=== PATIENT | female | born 1990 ===

== ENCOUNTER 2022-08-06 10:42 | Outpatient (REF) | payer MEDICARE, MEDICAID, SELFPAY ==
--- NOTE | ~2022-08-06 | XR_ITS ---
EXAMINATION: XR THORACOLUMBAR SPINE CLINICAL INFORMATION: Mid back pain COMPARISON: None TECHNIQUE: 3 views. FINDINGS: There is normal thoracic kyphosis. The vertebral heights, alignment and disc heights are normal. No visible acute fracture, dislocation or subluxation seen. The paravertebral soft tissues are normal. XR/XR thoracic spine 2V IMPRESSION: Unremarkable dorsal spine exam.
[2022-08-06 13:53] LABS: MANUAL DIFF FLAG NO
[2022-08-06 14:03] LABS: Basophils Percent Auto 0.8 % (0-2); Eosinophils Absolute Auto 0.1 X10*3/uL (0.0-0.4); Eosinophils Percent Auto 1.6 % (0-4); Hematocrit 37.9 % (37.0-47.0); Hemoglobin 12.2 g/dl (12.0-16.0); Imm Gran Abs Auto 0.02 X10*3/uL (0.00-0.03); Imm Gran Pct Auto 0.4 % (0.0-0.4); Lymphocytes Absolute Auto 1.5 X10*3/uL (1.2-4.9); Lymphocytes Percent Auto 30.1 % (20-40); Mean Corpuscular HGB Conc 32.2 g/dl (31.0-35.0); Mean Corpuscular Volume 80.8 fL (80.0-98.0); Mean Platelet Volume 12.2 fL (9.4-12.3); Monocytes Absolute Auto 0.4 X10*3/uL (0.1-1.2); Monocytes Percent Auto 8.8 % (2-11); Neutrophils Absolute Auto 2.9 x10*3/uL (2.0-8.3); Neutrophils Percent Auto 58.3 % (45-73); Platelet Count 237 X10*3/uL (160-400); Red Blood Count 4.69 X10*6/uL (4.20-5.50); Red Cell Distribution Width 14.5 % (11.0-16.0)
[2022-08-06 14:17] LABS: Estimated Glomerular Filt Rate > 60
[2022-08-06 14:36] LABS: Creatinine Urine 31.53 mg/dL; Total Protein Urine Random < 7 mg/dL (<12)
[2022-08-06 14:43] LABS: Erythrocyte Sedimentation Rate 16 MM/HR (0-20)
[2022-08-07 09:41] LABS: Complement C3 155 mg/dL (83-193)
[2022-08-11 07:33] LABS: Anti DNA DS Antibody 1 IU/mL; SM/Ribonucleoprotein Ab <1.0 NEG AI (<1.0 NEG); Smith Protein <1.0 NEG AI (<1.0 NEG)
== END 2022-08-06 10:43 | disposition home or self-care (01) ==
LOC: HO.10HDL 10:42
PROVIDERS: Visit Provider Internal Medicine Rheumatology
DX: M54.9 Dorsalgia, unspecified (principal); R76.8 Other specified abnormal immunological findings in serum; M54.50 Low back pain, unspecified; R93.7 Abnormal findings on diagnostic imaging of other parts of musculoskeletal system
CPT/HCPCS: 36415; 72070; 82565; 84156; 85025; 85652; 86160; 86225; 86235; 99202

== ENCOUNTER → 2022-08-24 14:51 | Outpatient (BNVA) | payer MEDICARE, MEDICAID, SELFPAY | PROVIDERS: PCP Internal Medicine; Visit Provider Nurse Practitioner Family | DX: G43.109 Migraine with aura, not intractable, without status migrainosus (principal); R55 Syncope and collapse; R20.2 Paresthesia of skin; M54.2 Cervicalgia | CPT/HCPCS: 99202 ==

== ENCOUNTER 2022-09-26 12:35 | Outpatient (REF) | payer MEDICARE, MEDICAID, SELFPAY ==
--- NOTE | 2022-09-26 12:37 | EEG_ITS ---
This is a 16-channel EEG with an EKG lead. The patient is reported awake during the tracing. Background EEG rhythm at times is low amplitude fast and at times about 8 hertz 5-20 microvolt posteriorly and lower amplitude fast anteriorly. The patient transitioned into drowsiness now and then. Photic stimulation did not produce any significant driving. Hyperventilation resulted in generalized slowing without any significant abnormality. There were at least couple of brief 1 seconds bursts of generalize delta range discharges out of wakefulness and drowsiness state. Cardiac lead did not reveal any significant abnormality. IMPRESSION: Mildly abnormal EEG suggestive of paroxysmal disorder of generalized nature. My suggestion is to obtain an ambulatory EEG for a day and 2 to get better picture of her EEG. MD LULÚ Duarte/RYLEE / [id number]
== END 2022-09-26 12:36 | disposition home or self-care (01) ==
LOC: HO.NEURO 12:35
PROVIDERS: Visit Provider Nurse Practitioner Family
DX: G43.109 Migraine with aura, not intractable, without status migrainosus (principal); R55 Syncope and collapse
CPT/HCPCS: 95816

== ENCOUNTER 2022-10-26 16:46 | Outpatient (REF) | payer MEDICARE, MEDICAID, SELFPAY | END 2022-10-26 16:47 | disposition home or self-care (01) | LOC: HO.HOSX 16:46 | PROVIDERS: Visit Provider Physician Assistant | DX: Z13.89 Encounter for screening for other disorder (principal) ==

== ENCOUNTER 2022-11-15 13:48 | Outpatient (REF) | payer MEDICARE, MEDICAID, SELFPAY ==
--- NOTE | 2022-11-15 09:30 | EMG_ITS ---
Bilateral median and ulnar motor and sensory studies were performed. Bilateral radial sensory studies were performed and paraspinal muscles were tested. IMPRESSION: Mild right ulnar sensory neuropathy. Otherwise, no significant abnormality was noted on this study. MD LULÚ Duarte/RYLEE / [id number]
== END 2022-11-15 13:49 | disposition home or self-care (01) ==
LOC: HO.NEURO 13:48
PROVIDERS: Visit Provider Nurse Practitioner Family
DX: R20.2 Paresthesia of skin (principal)
CPT/HCPCS: 95886; 95911

== ENCOUNTER 2022-12-28 07:59 | Outpatient (REF) | payer MEDICARE, MEDICAID, SELFPAY ==
--- NOTE | ~2022-12-28 | XR_ITS ---
EXAMINATION: XR FOOT, LEFT CLINICAL INFORMATION: Pain. COMPARISON: None available. TECHNIQUE: AP, lateral, and oblique views of the left foot. FINDINGS: Diffuse nonspecific soft tissue swelling. No acute fractures or subluxation. No significant degenerative changes. No erosions or abnormal soft tissue calcifications. XR/XR foot LT min 3V IMPRESSION: 1. Nonspecific diffuse soft tissue swelling. 2. No acute fractures or subluxation.
== END 2022-12-28 08:00 | disposition home or self-care (01) ==
LOC: HO.HOSX 07:59
PROVIDERS: Visit Provider Physician Assistant
DX: M72.2 Plantar fascial fibromatosis (principal)
CPT/HCPCS: 73630; 99202

== ENCOUNTER 2023-07-19 14:20 | Outpatient (AMB) | payer MEDICARE, MEDICAID, SELFPAY ==
--- NOTE | 2023-07-19 14:25 | MHC.OFFVIS ---
Intake Vital Signs 07/19/23 14:29 Weight 220 lb 6 oz BP 120/68 Blood Pressure Location Lt brachial Position Sitting Pulse 78 Pulse Source Pulse Oximeter Pulse Oximetry (%) 98 Oxygen Delivery Method Room Air Intake Visit Reasons: Follow up for Migraines/Lvm Intake Note: Pt presents today for fup migraines, seems to coincide c mentrual cycles can last as long as 7 days and as short as 2 , lately shes been very fatigued as well. Pt states now her feet are also falling asleep Allergies Penicillins Allergy (Intermediate, Verified 07/19/23 14:32) Hives oxcarbazepine Allergy (Unknown, Verified 07/19/23 14:32) Unknown propylene glycol Allergy (Unknown, Verified 07/19/23 14:32) Unknown cats, dust , pollen Allergy (Unknown, Uncoded 08/06/22 09:45) Unknown Medication List - Last Reconciled 07/19/23 by April Tracy, JCARLOS albuterol sulfate 90 mcg/actuation (ProAir HFA) 2 puffs inhalation Q6H PRN ascorbic acid (vitamin C) 500 mg PO DAILY baclofen 10 mg PO BEDTIME 30 days magnesium oxide 400 mg PO BEDTIME 30 days multivitamin 1 tab PO DAILY riboflavin (vitamin B2) 400 mg PO DAILY 30 days sulindac 200 mg PO BID sumatriptan succinate 100 mg PO Q2H PRN 30 days HPI HPI Comments History of Present Illness Details 33-yr-old female presents for f/u visit. Pt denies any significant interval medical changes. Pt reports she continues to have frequent headache- typically around her ovulation and her menses, but alos more TTH headcahes as well. She is having approx 3 weeks of headache per month. She did try Mag and B2 which were ineffective. She has not tried Sumatriptan yet- keeps forgetting to try. 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 Denies current risk for . She notes increased tiredness, unrefreshing sleep, excessive daytime sleepiness (dozes off when inactive, at [employer]), now snoring, frequent nocturnal arousals. Her cognition is worse. Finds herself forgetful. She may strutter if anxious. Denies any syncopal episodes. The 72 hr EEG was normal. Baseline EEG: Mildly abnormal EEG suggestive of paroxysmal disorder of generalized nature. PFSH Medical History Obesity Asthma ADD (attention deficit disorder) Iron deficiency anemia Gestational diabetes Bipolar 1 disorder Surgical History History of section Family History Mother Hypercholesteremia Father Diabetes Hypothyroidism Arthritis CVA (cerebral vascular accident) Maternal Grandmother Myocardial infarct Maternal Grandfather Myocardial infarct Paternal Grandmother Prostate cancer Paternal Grandfather No problems noted. Social History Household Members: Children Alcohol intake: current Alcohol intake frequency: does not drink Patient Tobacco Use Status: Never used Tobacco Current occupational status: unemployed Review of Systems Const All systems reviewed & are unremarkable except as noted in HPI and below Physical Exam Vital Signs: Last Vital Signs Pulse 78 07/19/23 14:29 BP 120/68 07/19/23 14:29 Pulse Ox 98 07/19/23 14:29 Oxygen Delivery Method Room Air 07/19/23 14:29 Const General: cooperative and no acute distress Orientation/consciousness: patient oriented x3 HEENT Head: Yes normocephalic Resp Effort & Inspection: normal respiratory effort and able to speak in complete sentences Neuro General: patient oriented x3, gait normal and CN's II-XI intact bilaterally Cognition (Neuro): normal cognition Motor exam (neuro): 5/5 motor strength present throughout Psych Appearance: grossly normal Mental Status: mental status grossly normal Speech and movement: Normal speech and movement present Affect: normal affect Attitude: cooperative Thought process: Normal thought process present Thought content: Normal thought content present Insight: Good insight present (Psych) Judgement: Good judgement present (Psych) Assessment & Plan Assessment & Plan (1) Migraine with aura: Code(s): G43.109 - Migraine with aura, not intractable, without status migrainosus (2) Snoring: Code(s): R06.83 - Snoring (3) Excessive daytime sleepiness: Comment: ESS 15 Code(s): G47.19 - Other hypersomnia (4) Sleep difficulties: Code(s): G47.9 - Sleep disorder, unspecified Plan Pt advsied to undergo HST to asses for sleep apnea. Monitor cognition, stuttering- ? effect of poor sleep quality, ? untreated ADD, ? headache For h/o syncopal episodes: Initial EEG- mildly abnormal, f/u 72 hr EEG- normal Will monitor ? For overall headache management: Discussed importance of good self-care, including but not limited to maintaining a healthy diet, adequate fluid intake, adequate sleep, and engaging in regular physical activity. Track headaches ? For acute headache treatment: Again trial Sumatriptan prn, may adjunct w/ OTC Naproxen or Ibuprofen- may statrt 1-2 days priro to onset of menses Previous acute migraine medication trials: Excedrin, Ibuprofen Acute migraine medication contraindications: None at this time. ? For headache prevention medication: Pt would like to hold trying new option at this time. Hold Riboflavin 400mg qam Magnesium 400mg qhs- ineffective. Hold Baclofen 10mg qhs. Previous migraine prevention medication trials: None Migraine prevention medication contraindications: BBs as pt has asthma dx. f/u in 4 months or sooner prn Orders: Orders RT home sleep study Today G47.19 - Other hypersomnia, G47.9 - Sleep disorder, unspecified, R06.83 - Snoring Medications: Refilled sumatriptan succinate max 2 tabs per day or 4 tabs/week (may take with Tylenol) 100 mg PO Q2H 30 days PRN 12 tabs 6RF migraine headache Coding Level of Care Code Est Pt Level 4 (85677) Diagnoses Migraine with aura G43.109 Snoring R06.83 Excessive daytime sleepiness G47.19 Sleep difficulties G47.9
[2023-07-19 14:29] VITALS: BP 120/68; PULSE 78; O2SAT 98
== END 2023-07-19 15:14 | disposition home or self-care (01) ==
PROVIDERS: PCP Student in an Organized Health Care Education/Training Program; Visit Provider Nurse Practitioner Family
DX: G43.109 Migraine with aura, not intractable, without status migrainosus (principal); R06.83 Snoring; G47.19 Other hypersomnia; G47.9 Sleep disorder, unspecified
CPT/HCPCS: 99214

== ENCOUNTER → 2023-07-19 14:20 | Outpatient (BNVA) | payer MEDICARE, MEDICAID, SELFPAY | PROVIDERS: PCP Student in an Organized Health Care Education/Training Program; Visit Provider Nurse Practitioner Family | DX: G43.109 Migraine with aura, not intractable, without status migrainosus (principal); R06.83 Snoring; G47.19 Other hypersomnia; G47.9 Sleep disorder, unspecified | CPT/HCPCS: 99212 ==

== ENCOUNTER 2023-10-04 10:26 | Outpatient (AMB) | payer MEDICARE, MEDICAID, SELFPAY ==
--- NOTE | 2023-10-04 10:46 | MHC.OFFVIS ---
Intake Vital Signs 10/04/23 10:47 Height 5 ft 4 in Weight 228 lb 13.437 oz BMI 39.3 BP 108/60 Blood Pressure Location Rt brachial Position Sitting Pulse 74 Pulse Source Pulse Oximeter Temp 97.5 F Temp Source Skin Pulse Oximetry (%) 98 Oxygen Delivery Method Room Air Intake Visit Reasons: f/u CARMELINA Intake Note: Patient last seen 08/06/[address] Moeller, presents today for follow up and test results. 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 Clover Hernandez yoF returns for follow-up of her initial evaluation of multiple areas of pain and a positive CARMELINA. She denies new symptoms since last visit in 08/2022. She continues to follow with Neuro for headaches and Ortho for Plantar Fasciitis. She endorses diffused pain to hand, ankle knees and lower back. She denies uvetiits, rash, diarrhea, stool mucous or blood. She does not have CTD and inflammatory symptoms. Prior Visit: The patient presents for evaluation of multiple areas of pain and a positive CARMELINA. After her of her 1st child when she was 19 she noted the onset of some lower back pain. This typically is sharp and comes and goes. It is often made worse when she is more physically active. She has had 2 subsequent childbirths and after the last 3 years ago she devleoped some upper back pain. This seems to radiate around to the front of the chest. It is worse with taking a deep breath or with bending or stooping. She does not recall any injury to the area. She also gets more diffuse pains involving the hands, wrists, hips, knees and feet. She thinks the hands are intermittently painful, swollen and numb. She was put on 7.5 mg daily meloxicam about 6 months ago but it has not really improved any of her symptoms. An CARMELINA was done and was positive a 1:160 titer. She gets some redness over her cheeks at times. She was told in the past she had ADHD and bipolar disorder. A subsequent therapist told her that she only has ADHD and not bipolar. She is not on any medicine for these mental health issues currently. She does take occasional albuterol inhaler for wheezing. She she lives with her 3 children at home and they are said to have some degree of autism. [facility] Medical History (Updated 10/07/23 @ 15:00 by NATALI Cramer) Chronic pain of multiple joints Bilateral hand pain Obesity Asthma ADD (attention deficit disorder) Iron deficiency anemia Gestational diabetes Bipolar 1 disorder Surgical History History of section Family History Mother Hypercholesteremia Father Diabetes Hypothyroidism Arthritis CVA (cerebral vascular accident) Maternal Grandmother Myocardial infarct Maternal Grandfather Myocardial infarct Paternal Grandmother Prostate cancer Paternal Grandfather No problems noted. Social History Household Members: Children Alcohol intake: current Alcohol intake frequency: does not drink Patient Tobacco Use Status: Never used Tobacco Current occupational status: unemployed Review of Systems Const All systems reviewed & are unremarkable except as noted in HPI and below Physical Exam Vital Signs: Last Vital Signs Temp 97.5 F 10/04/23 10:47 Pulse 74 10/04/23 10:47 BP 108/60 10/04/23 10:47 Pulse Ox 98 10/04/23 10:47 Oxygen Delivery Method Room Air 10/04/23 10:47 BMI result Body Mass Index 39.3 APPEARANCE: Patient in no acute distress, groomed, nourished EYES no redness, pupils equal and reactive to light, eyelids normal EARS: External ear normal, canal clear and tympanic membrane normal. NOSE/SINUS: Airflow through both nares, no nasal discharge, no bleeding THROAT: Oral mucosa moist, no ulcerations NECK: No thyromegaly or masses, no adenopathy, trachea midline. HEART: Regulrar rhythm, S1-S2 heard, no murmurs, rubs or gallops. LUNG: Clear to percussion and auscultation EXTREMITIES: No edema, no calf tenderness, normal peripheral pulses. NEURO: Oriented and alert x3. No focal weakness. Reflexes symmetric. Gait normal. SKIN: Slight redness over the cheeks. Laterally there is a few papules suggestive of acne. No objective evidence of Raynaud's phenomena. She has a large, irregularly shaped birthmark on the right arm from wrist extending up to the anterior shoulder. It is not tender or problem. JOINT EXAM:.?? Cervical Spine:.? Full range of motion with mild discomfort at the extremes of motion. Some slight cervical muscle tenderness. Thoracic Spine:.? No scoliosis.? Mild tenderness along the upper thoracic spine and paraspinal muscles in that region. Lumbar Spine:.? Alignment normal.? Lumbar pain with flexion at 60 degrees with some spinal and paraspinal muscle tenderness. Chest Wall:.? There is tenderness along the sternum the upper thoracic spine area. No swelling, warmth or erythema. Hands:.? Normal pain-free range of motion with mild tenderness across the MCP and PIP regions but there is no triggering, swelling, increased warmth or erythema. She seems to describe relatively decreased sensation over the fingertips in the left hand. Wrists:.? Mild pain with flexion extension at 80 degrees with some mild tenderness but no swelling, increased warmth or erythema. Elbows:. Normal pain-free range of motion without tenderness, swelling, increased warmth or erythema. Shoulders:.?? Full range of motion with mild pain at the extremes of range of motion. Most of this is felt over the top of the shoulder and trapezius muscles. Those muscles are tender. There is no supraclavicular or axillary adenopathy, weakness, swelling, increased warmth or erythema. Hips:.? Right: Full range of motion without pain. Left: Mild buttock and lateral pain with extremes of normal internal and external rotation. Hip bursa:.? Mild left trochanteric tenderness. Knees:.??Mild pain with extremes of normal flexion extension with some mild medial tenderness without effusion, crepitus, soft tissue lump swelling, increased warmth or erythema.? Ankles:.? Normal pain-free range of motion without tenderness, swelling, increased warmth or erythema. Feet:.? Normal pain-free range of motion without tenderness, swelling, increased warmth or erythema. Tender points:.? Mild tenderness to digital palpation at the occiput, trapezius, second rib, knees, greater trochanter and gluteal area bilaterally. ? Assessment & Plan Assessment & Plan (1) CARMELINA positive: Code(s): R76.8 - Other specified abnormal immunological findings in serum (2) Lower back pain: Code(s): M54.50 - Low back pain, unspecified Qualifiers: Chronicity: chronic Back pain laterality: bilateral Sciatica presence: without sciatica Qualified Code(s): M54.50 - Low back pain, unspecified; G89.29 - Other chronic pain (3) Abnormal x-ray of lumbar spine: Comment: Right SI joint sclerosis Code(s): R93.7 - Abnormal findings on diagnostic imaging of other parts of musculoskeletal system (4) Chronic pain of multiple joints: Code(s): M25.50 - Pain in unspecified joint; G89.29 - Other chronic pain Plan #Low Back Pain/Multiple Joint Pain:The patient presents for evaluation of multiple areas of pain to low back, ankle, knees, feet and hands. She has had low back pain starting at age 19. In last 4 years or so she has also had intermittent thoracic spine pains, seemingly of a pleuritic nature at times. Imaging of the chest has been normal. The LS spine films showed some right SI joint sclerosis but I can not review the films as they were done at [place]. The quality of her pains are that they do seem to bother her at night but also get worse with activity. This would make it a mixed picture of possible inflammatory disease, such as SpA, and degenerative processes. In that regard the cervical and lumbar spine regions did not have significant degenerative changes on the readings. Her sed rate was also normal last Jul 2022. A further work up with thoracic spine films and a recheck of her inflammatory markers was also WNL and non-contributory to SpA Dx. I will recheck some inflammatory markers and I will add some more specific antibodies to rule out RA given hand pain and check HLA B27 given hx of low back pain with SI sclerosis and plantar fasciitis for possible nrAxSpa,. #+CARMELINA:The CARMELINA titer was low at [place] and her widespread symptoms are more suggestive of fibromyalgia particularly in light of the normal ENAs, sed rate and CBC from last labs 07/2022. She does not have a presentation for SLE. The facial rash was treated as rosacea and her fatigue is likely related to the depression. Orders: Orders Anti Extractable Nuclear Ag Today M54.50 - Low back pain, unspecified, M72.2 - Plantar fascial fibromatosis, M79.641 - Pain in right hand, M79.642 - Pain in left hand, R06.83 - Snoring, R76.8 - Other specified abnormal immunological findings in serum Erythrocyte Sedimentation Rate Today M54.50 - Low back pain, unspecified, M72.2 - Plantar fascial fibromatosis, M79.641 - Pain in right hand, M79.642 - Pain in left hand, R06.83 - Snoring, R76.8 - Other specified abnormal immunological findings in serum C Reactive Protein Today M54.50 - Low back pain, unspecified, M72.2 - Plantar fascial fibromatosis, M79.641 - Pain in right hand, M79.642 - Pain in left hand, R06.83 - Snoring, R76.8 - Other specified abnormal immunological findings in serum Sjogren's Antibodies Today M54.50 - Low back pain, unspecified, M72.2 - Plantar fascial fibromatosis, M79.641 - Pain in right hand, M79.642 - Pain in left hand, R06.83 - Snoring, R76.8 - Other specified abnormal immunological findings in serum HLA B27 Today M54.50 - Low back pain, unspecified, M72.2 - Plantar fascial fibromatosis, M79.641 - Pain in right hand, M79.642 - Pain in left hand, R06.83 - Snoring, R76.8 - Other specified abnormal immunological findings in serum CARMELINA Reflex Titer and Pattern Today M54.50 - Low back pain, unspecified, M72.2 - Plantar fascial fibromatosis, M79.641 - Pain in right hand, M79.642 - Pain in left hand, R06.83 - Snoring, R76.8 - Other specified abnormal immunological findings in serum Cyclic Citrullinated Peptide Today M54.50 - Low back pain, unspecified, M72.2 - Plantar fascial fibromatosis, M79.641 - Pain in right hand, M79.642 - Pain in left hand, R06.83 - Snoring, R76.8 - Other specified abnormal immunological findings in serum Rheumatoid Factor Today M54.50 - Low back pain, unspecified, M72.2 - Plantar fascial fibromatosis, M79.641 - Pain in right hand, M79.642 - Pain in left hand, R06.83 - Snoring, R76.8 - Other specified abnormal immunological findings in serum Coding Level of Care Code Est Pt Level 4 (42288) Diagnoses CARMELINA positive R76.8 Chronic bilateral low back pain without sciatica M54.50; G89.29 Chronicity: chronic Back pain laterality: bilateral Sciatica presence: without sciatica Abnormal x-ray of lumbar spine R93.7 Chronic pain of multiple joints M25.50; G89.29
[2023-10-04 10:47] VITALS: BP 108/60; PULSE 74; TEMP 36.4; O2SAT 98; BMI 39.3
== END 2023-10-04 11:32 | disposition home or self-care (01) ==
PROVIDERS: PCP Student in an Organized Health Care Education/Training Program; Visit Provider Nurse Practitioner Family
DX: R76.8 Other specified abnormal immunological findings in serum (principal); M54.50 Low back pain, unspecified; G89.29 Other chronic pain; R93.7 Abnormal findings on diagnostic imaging of other parts of musculoskeletal system; M25.50 Pain in unspecified joint
CPT/HCPCS: 99214

== ENCOUNTER → 2023-10-04 10:26 | Outpatient (BNVA) | payer MEDICARE, MEDICAID, SELFPAY | PROVIDERS: PCP Student in an Organized Health Care Education/Training Program; Visit Provider Nurse Practitioner Family | DX: R76.8 Other specified abnormal immunological findings in serum (principal); R93.7 Abnormal findings on diagnostic imaging of other parts of musculoskeletal system; M54.50 Low back pain, unspecified; M25.50 Pain in unspecified joint; G89.29 Other chronic pain | CPT/HCPCS: 99212 ==

== ENCOUNTER → 2023-10-16 10:41 | Outpatient (REF) | payer MEDICARE, MEDICAID, SELFPAY | LOC: HO.SL 10:41 | PROVIDERS: PCP Student in an Organized Health Care Education/Training Program; Visit Provider Nurse Practitioner Family | DX: R06.83 Snoring (principal); G47.19 Other hypersomnia; G47.9 Sleep disorder, unspecified | CPT/HCPCS: 95806 ==

== ENCOUNTER → 2023-10-16 10:52 | Outpatient (BNV) | payer MEDICARE, MEDICAID, SELFPAY | PROVIDERS: PCP Student in an Organized Health Care Education/Training Program; Visit Provider Psychiatry & Neurology Neurology | DX: R06.83 Snoring (principal) | CPT/HCPCS: 95806 ==

== ENCOUNTER 2023-11-27 14:42 | Outpatient (AMB) | payer MEDICARE, MEDICAID, SELFPAY ==
--- NOTE | 2023-11-27 14:46 | A.OFFVIS_ITS ---
Intake Vital Signs 11/27/23 14:47 Height 5 ft 4 in Weight 210 lb BMI 36.0 BP 112/70 Blood Pressure Location Rt brachial Position Sitting Pulse 79 Pulse Source Pulse Oximeter Pulse Oximetry (%) 98 Oxygen Delivery Method Room Air Intake Visit Reasons: 4 mnts f/u for Migraines-LVM Intake Note: Patient presents for 4 month follow up migraines. I thought with he change of diet my migraines would go away but i still get them. Allergies Penicillins Allergy (Intermediate, Verified 11/27/23 14:51) Hives oxcarbazepine Allergy (Unknown, Verified 11/27/23 14:51) Unknown propylene glycol Allergy (Unknown, Verified 11/27/23 14:51) Unknown cats, dust , pollen Allergy (Unknown, Uncoded 11/27/23 14:51) Unknown Medication List - Last Reconciled 11/27/23 by JCARLOS Brumfield albuterol sulfate 90 mcg/actuation (ProAir HFA) 2 puffs inhalation Q6H PRN ascorbic acid (vitamin C) 500 mg PO DAILY baclofen 10 mg PO BEDTIME 30 days magnesium oxide 400 mg PO BEDTIME 30 days multivitamin 1 tab PO DAILY phentermine 15 mg PO QAM riboflavin (vitamin B2) 400 mg PO DAILY 30 days sulindac 200 mg PO BID sumatriptan succinate 100 mg PO Q2H PRN 30 days topiramate 50 mg PO DAILY HPI HPI Comments History of Present Illness Details 33-yr-old female presents for f/u visit. Pt states her headaches are less often, but still happen about once a week. She has stopped eating gluten/dairy and decreased carb intake to help headcahes, LUQ abd pains, and inflammation/swelling. Some of her headaches have resolved. The LUQ abd pain has resolved. The hand swelling is better. But he still has headaches triggered by other stabbing/burning pains (all over the body) and hormonal changes. Can have the stabbing pains without the the headache- this started before starting Topiramate. She also did hurt her lower back which caused Right sciatica pain, but now notices sciatica symptoms in either right or left leg. She continues to have upper back and neck stiffness. She does walk daily. She is currently doing PT for the lower back- but they are trying to help the upper back as well. Her HST showed AHI < 1 /hr and O2 denise 88%. She is prone to restless sleep. Recent ferritin was 12 She is using Ibuprofen, Tylenol- does not always help. Sumatriptan- does not always help and makes her drowsy. She is complaint w/ B2, Mag, Topiramate. Baseline headache characteristics: Prodrome symptoms-None Aura- Initial symptom is a left hip region pressure a/w LLE numbness/weakness- this can last 20 minutes. This also started after the of her son. Severe, stabbing and pressure pain, starts in the neck, mid-occipital region and moves into the mid-frontal region a/w photophobia, phonophobia, osmophobia, nausea, brain fog, external spinning dizziness, constipation or diarrhea, hands/feet numbness/tingling- more on left, difficulty speaking (specifically getting the words out), activity intolerance, syncope when severe. Postdrome- Nausea and hand/feet tingling. [facility] Medical History (Updated 11/27/23 @ 15:31 by JCARLOS Brumfield) Chronic pain of multiple joints Bilateral hand pain Obesity Asthma ADD (attention deficit disorder) Iron deficiency anemia Gestational diabetes Bipolar 1 disorder Surgical History History of section Family History Mother Hypercholesteremia Father Diabetes Hypothyroidism Arthritis CVA (cerebral vascular accident) Maternal Grandmother Myocardial infarct Maternal Grandfather Myocardial infarct Paternal Grandmother Prostate cancer Paternal Grandfather No problems noted. Social History Household Members: Children Alcohol intake: current Alcohol intake frequency: does not drink Patient Tobacco Use Status: Never used Tobacco Current occupational status: unemployed Physical Exam Vital Signs: Last Vital Signs Pulse 79 11/27/23 14:47 BP 112/70 11/27/23 14:47 Pulse Ox 98 11/27/23 14:47 Oxygen Delivery Method Room Air 11/27/23 14:47 BMI result Body Mass Index 36.0 Const General: cooperative and no acute distress Orientation/consciousness: patient oriented x3 Resp Effort & Inspection: normal respiratory effort and able to speak in complete sentences Neuro General: patient oriented x3 Cranial nerves: Yes CN's II-XII intact bilaterally Cognition (Neuro): normal cognition Psych Appearance: grossly normal Mental Status: mental status grossly normal Speech and movement: Normal speech and movement present Affect: normal affect Attitude: cooperative Assessment & Plan Assessment & Plan (1) Migraine with aura: Code(s): G43.109 - Migraine with aura, not intractable, without status migrainosus (2) Low ferritin: Code(s): R79.0 - Abnormal level of blood mineral (3) Paresthesia of hand, bilateral: Comment: R > L. ? carpal tunnel process or cervicogenic. Code(s): R20.2 - Paresthesia of skin (4) Sleep difficulties: Code(s): G47.9 - Sleep disorder, unspecified (5) Excessive daytime sleepiness: Comment: ESS 15 Code(s): G47.19 - Other hypersomnia (6) Snoring: Code(s): R06.83 - Snoring Plan Reviewed HST- AHI < 1 /hr an dO2 denise 88%. Pt advised to undergo f/u in-lab PSG. Check B12 and folate. Monitor cognition, stuttering- ? effect of poor sleep quality, ? untreated ADD, ? headache ? For h/o syncopal episodes: Initial EEG- mildly abnormal, f/u 72 hr EEG- normal Will monitor ? For overall headache management: Continue to optimize good self-care, including but not limited to maintaining a healthy diet, adequate fluid intake, adequate sleep, and engaging in regular physical activity. Track headaches ? For acute headache treatment: Trial Rizatriptan 10mg prn. may adjunct w/ OTC Naproxen or Ibuprofen- may start 1-2 days prior to onset of menses Hold Sumatriptan prn- not always effective, and causes sleepiness. Previous acute migraine medication trials: Excedrin, Ibuprofen. Sumatriptan prn- not always effective, and causes sleepiness. Acute migraine medication contraindications: None at this time. ? For headache prevention medication: Riboflavin 400mg qam Magnesium 400mg qhs Topiramate 50mg daily Previous migraine prevention medication trials: none other Migraine prevention medication contraindications: BBs as pt has asthma dx. ? f/u in 5-6 months or sooner prn Orders: Orders RT PSG in-lab sleep study 11/27/23 G47.9 - Sleep disorder, unspecified, G47.19 - Other hypersomnia, R06.83 - Snoring Vitamin B12 and Folate 11/27/23 R79.0 - Abnormal level of blood mineral, R20.2 - Paresthesia of skin Medications: New rizatriptan max 2 tabs per day or 4 tabs per week 5 - 10 mg (0.5 - 1 x 10 mg) PO Q2H PRN 12 tabs 3RF migraine headache 30 days Coding Level of Care Code Est Pt Level 4 (06003) Diagnoses Migraine with aura G43.109 Low ferritin R79.0 Paresthesia of hand, bilateral R20.2 Sleep difficulties G47.9 Excessive daytime sleepiness G47.19 Snoring R06.83
[2023-11-27 14:47] VITALS: BP 112/70; PULSE 79; O2SAT 98; BMI 36.0
== END 2023-11-27 16:14 | disposition home or self-care (01) ==
PROVIDERS: PCP Student in an Organized Health Care Education/Training Program; Visit Provider Nurse Practitioner Family
DX: G43.109 Migraine with aura, not intractable, without status migrainosus (principal); R79.0 Abnormal level of blood mineral; R20.2 Paresthesia of skin; G47.9 Sleep disorder, unspecified; G47.19 Other hypersomnia; R06.83 Snoring
CPT/HCPCS: 99214

== ENCOUNTER → 2023-11-27 14:42 | Outpatient (BNVA) | payer MEDICARE, MEDICAID, SELFPAY | PROVIDERS: PCP Student in an Organized Health Care Education/Training Program; Visit Provider Nurse Practitioner Family | DX: G43.109 Migraine with aura, not intractable, without status migrainosus (principal); R79.0 Abnormal level of blood mineral; R20.2 Paresthesia of skin; G47.19 Other hypersomnia; R06.83 Snoring | CPT/HCPCS: 99212 ==

== ENCOUNTER 2023-12-25 10:45 | Outpatient (AMB) | payer MEDICARE, MEDICAID, SELFPAY ==
--- NOTE | 2023-12-25 11:04 | MHC.OFFVIS ---
Intake Vital Signs 12/25/23 11:10 Height 5 ft 4 in Weight 205 lb 0.478 oz BMI 35.2 BP 130/60 Blood Pressure Location Lt brachial Position Sitting Pulse 76 Pulse Source Pulse Oximeter Pulse Oximetry (%) 99 Oxygen Delivery Method Room Air Intake Visit Reasons: Having alot of body pain Intake Note: Patient presents today c/o diffused myalgias. 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 Clover Hernandez yoF returns for follow-up of her of multiple areas of pain and a positive CARMELINA. She continues with plantar fsciitis and knee pain. She continues to follow with Neuro for headaches and Ortho for Plantar Fasciitis. She endorses diffused pain to hand, ankle knees and lower back. She denies uvetiits, rash, diarrhea, stool mucous or blood. She does not have CTD and inflammatory symptoms. She did not obtain labs as requested. She has modified her diet to be Gluten free and finds that many of her discomfort has been alleviated or reduced. She does not have the swelling/puffiness that she felt in the past to hands and feet and face. She also says that the rash to her face has cleared up significantly being Gluten free. She still has the over pain. She wants to continue on this path and see if she can obtain more benefit from being Gluten free. Prior Visit 08/06/2022: The patient presents for evaluation of multiple areas of pain and a positive CARMELINA. After her of her 1st child when she was 19 she noted the onset of some lower back pain. This typically is sharp and comes and goes. It is often made worse when she is more physically active. She has had 2 subsequent childbirths and after the last 3 years ago she devleoped some upper back pain. This seems to radiate around to the front of the chest. It is worse with taking a deep breath or with bending or stooping. She does not recall any injury to the area. She also gets more diffuse pains involving the hands, wrists, hips, knees and feet. She thinks the hands are intermittently painful, swollen and numb. She was put on 7.5 mg daily meloxicam about 6 months ago but it has not really improved any of her symptoms. An CARMELINA was done and was positive a 1:160 titer. She gets some redness over her cheeks at times. She was told in the past she had ADHD and bipolar disorder. A subsequent therapist told her that she only has ADHD and not bipolar. She is not on any medicine for these mental health issues currently. She does take occasional albuterol inhaler for wheezing. She she lives with her 3 children at home and they are said to have some degree of autism. [facility] Medical History (Updated 12/25/23 @ 12:39 by NATALI Cramer) Plantar fasciitis, bilateral Screening examination for infectious disease Chronic pain of multiple joints Bilateral hand pain Obesity Asthma ADD (attention deficit disorder) Iron deficiency anemia Gestational diabetes Bipolar 1 disorder Surgical History History of section Family History Mother Hypercholesteremia Father Diabetes Hypothyroidism Arthritis CVA (cerebral vascular accident) Maternal Grandmother Myocardial infarct Maternal Grandfather Myocardial infarct Paternal Grandmother Prostate cancer Paternal Grandfather No problems noted. Social History Household Members: Children Alcohol intake: current Alcohol intake frequency: does not drink Patient Tobacco Use Status: Never used Tobacco Current occupational status: unemployed Review of Systems Const All systems reviewed & are unremarkable except as noted in HPI and below Physical Exam Vital Signs: Last Vital Signs Pulse 76 12/25/23 11:10 BP 130/60 12/25/23 11:10 Pulse Ox 99 12/25/23 11:10 Oxygen Delivery Method Room Air 12/25/23 11:10 BMI result Body Mass Index 35.2 APPEARANCE: Patient in no acute distress, groomed, nourished EYES no redness, pupils equal and reactive to light, eyelids normal EARS: External ear normal, canal clear and tympanic membrane normal. NOSE/SINUS: Airflow through both nares, no nasal discharge, no bleeding THROAT: Oral mucosa moist, no ulcerations NECK: No thyromegaly or masses, no adenopathy, trachea midline. HEART: Regulrar rhythm, S1-S2 heard, no murmurs, rubs or gallops. LUNG: Clear to percussion and auscultation EXTREMITIES: No edema, no calf tenderness, normal peripheral pulses. NEURO: Oriented and alert x3. No focal weakness. Reflexes symmetric. Gait normal. SKIN: Slight redness over the cheeks. Laterally there is a few papules suggestive of acne. No objective evidence of Raynaud's phenomena. She has a large, irregularly shaped birthmark on the right arm from wrist extending up to the anterior shoulder. It is not tender or problem. JOINT EXAM:.?? Cervical Spine:.? Full range of motion with mild discomfort at the extremes of motion. Some slight cervical muscle tenderness. Thoracic Spine:.? No scoliosis.? Mild tenderness along the upper thoracic spine and paraspinal muscles in that region. Lumbar Spine:.? Alignment normal.? Lumbar pain with flexion at 60 degrees with some spinal and paraspinal muscle tenderness. Chest Wall:.? There is tenderness along the sternum the upper thoracic spine area. No swelling, warmth or erythema. Hands:.? Normal pain-free range of motion with mild tenderness across the MCP and PIP regions but there is no triggering, swelling, increased warmth or erythema. She seems to describe relatively decreased sensation over the fingertips in the left hand. Wrists:.? Mild pain with flexion extension at 80 degrees with some mild tenderness but no swelling, increased warmth or erythema. Elbows:. Normal pain-free range of motion without tenderness, swelling, increased warmth or erythema. Shoulders:.?? Full range of motion with mild pain at the extremes of range of motion. Most of this is felt over the top of the shoulder and trapezius muscles. Those muscles are tender. There is no supraclavicular or axillary adenopathy, weakness, swelling, increased warmth or erythema. Hips:.? Right: Full range of motion without pain. Left: Mild buttock and lateral pain with extremes of normal internal and external rotation. Hip bursa:.? Mild left trochanteric tenderness. Knees:.??Mild pain with extremes of normal flexion extension with some mild medial tenderness without effusion, crepitus, soft tissue lump swelling, increased warmth or erythema.? Ankles:.? Normal pain-free range of motion without tenderness, swelling, increased warmth or erythema. Feet:.? Normal pain-free range of motion without tenderness, swelling, increased warmth or erythema. Tender points:.? Mild tenderness to digital palpation at the occiput, trapezius, second rib, knees, greater trochanter and gluteal area bilaterally. ? Assessment & Plan Assessment & Plan (1) CARMELINA positive: Code(s): R76.8 - Other specified abnormal immunological findings in serum (2) Lower back pain: Code(s): M54.50 - Low back pain, unspecified Qualifiers: Chronicity: chronic Back pain laterality: bilateral Sciatica presence: without sciatica Qualified Code(s): M54.50 - Low back pain, unspecified; G89.29 - Other chronic pain (3) Abnormal x-ray of lumbar spine: Comment: Right SI joint sclerosis Code(s): R93.7 - Abnormal findings on diagnostic imaging of other parts of musculoskeletal system (4) Chronic pain of multiple joints: Code(s): M25.50 - Pain in unspecified joint; G89.29 - Other chronic pain (5) Plantar fasciitis, bilateral: Code(s): M72.2 - Plantar fascial fibromatosis Plan The patient did not obtain labs as request. I will trial her on Leflunomide after labs are obtain. She continues with SI joint pain, plantar fascitiis. She is following with Neuro for headache and memory challenges. F/u 6weeks Prior Asseement 09/24/2023: #Low Back Pain/Multiple Joint Pain:The patient presents for evaluation of multiple areas of pain to low back, ankle, knees, feet and hands. She has had low back pain starting at age 19. In last 4 years or so she has also had intermittent thoracic spine pains, seemingly of a pleuritic nature at times. Imaging of the chest has been normal. The LS spine films showed some right SI joint sclerosis but I can not review the films as they were done at [facility]. The quality of her pains are that they do seem to bother her at night but also get worse with activity. This would make it a mixed picture of possible inflammatory disease, such as SpA, and degenerative processes. In that regard the cervical and lumbar spine regions did not have significant degenerative changes on the readings. Her sed rate was also normal last Jul 2022. A further work up with thoracic spine films and a recheck of her inflammatory markers was also WNL and non-contributory to SpA Dx. I will recheck some inflammatory markers and I will add some more specific antibodies to rule out RA given hand pain and check HLA B27 given hx of low back pain with SI sclerosis and plantar fasciitis for possible nrAxSpa,. #+CARMELINA:The CARMELINA titer was low at [facility] and her widespread symptoms are more suggestive of fibromyalgia particularly in light of the normal ENAs, sed rate and CBC from last labs 07/2022. She does not have a presentation for SLE. The facial rash was treated as rosacea and her fatigue is likely related to the depression. Orders: Orders Hepatitis A,B,C Profile Today G89.29 - Other chronic pain, M25.50 - Pain in unspecified joint, R79.0 - Abnormal level of blood mineral, Z11.9 - Encounter for screening for infectious and parasitic diseases, unspecified Immunofixation Pnl, Serum Today G89.29 - Other chronic pain, M25.50 - Pain in unspecified joint, R79.0 - Abnormal level of blood mineral, Z11.9 - Encounter for screening for infectious and parasitic diseases, unspecified T Spot TB Today G89.29 - Other chronic pain, M25.50 - Pain in unspecified joint, R79.0 - Abnormal level of blood mineral, Z11.9 - Encounter for screening for infectious and parasitic diseases, unspecified Immunoglobulins,IgG IgA IgM Today G89.29 - Other chronic pain, M25.50 - Pain in unspecified joint, R79.0 - Abnormal level of blood mineral, Z11.9 - Encounter for screening for infectious and parasitic diseases, unspecified Protein Electrophoresis, Serum Today G89.29 - Other chronic pain, M25.50 - Pain in unspecified joint, R79.0 - Abnormal level of blood mineral, Z11.9 - Encounter for screening for infectious and parasitic diseases, unspecified Coding Level of Care Code Est Pt Level 3 (64886) Diagnoses CARMELINA positive R76.8 Chronic bilateral low back pain without sciatica M54.50; G89.29 Chronicity: chronic Back pain laterality: bilateral Sciatica presence: without sciatica Abnormal x-ray of lumbar spine R93.7 Chronic pain of multiple joints M25.50; G89.29 Plantar fasciitis, bilateral M72.2
[2023-12-25 11:10] VITALS: BP 130/60; PULSE 76; O2SAT 99; BMI 35.2
== END 2023-12-25 11:36 | disposition home or self-care (01) ==
PROVIDERS: PCP Student in an Organized Health Care Education/Training Program; Visit Provider Nurse Practitioner Family
DX: R76.8 Other specified abnormal immunological findings in serum (principal); M54.50 Low back pain, unspecified; G89.29 Other chronic pain; R93.7 Abnormal findings on diagnostic imaging of other parts of musculoskeletal system; M25.50 Pain in unspecified joint; M72.2 Plantar fascial fibromatosis
CPT/HCPCS: 99213

== ENCOUNTER 2023-12-25 11:44 | Outpatient (REF) | payer MEDICARE, MEDICAID, SELFPAY ==
[2023-12-25 14:06] LABS: Rheumatoid Factor < 13.0 IU/mL (<15.0)
[2023-12-25 14:32] LABS: C Reactive Protein 0.21 mg/dL (< or = 0.50)
[2023-12-25 14:55] LABS: Erythrocyte Sedimentation Rate 16 MM/HR (0-20)
[2023-12-25 15:03] LABS: Folate 18.3 ng/mL (> or = 4.0)
[2023-12-25 19:54] LABS: Vitamin B12 760 pg/mL (200-900)
[2023-12-26 05:03] LABS: HBS Num1 41.52 mIU/mL (0-7.99); HBc Num1 0.06 S/CO (0.00-0.79); HBsAGNum1 0.34 S/CO (0.00-0.99); Hepatitis A Antibody IgM 0.15 Index (0-0.79); Hepatitis B Core Antibody Nonreactive (Nonreactive); Hepatitis B Surface Antigen Negative (Negative); ~HepC Num1 0.15 S/CO (0.00-0.79); ~Hepatitis A Antibody IgM Nonreactive (Nonreactive); ~Hepatitis B Surface Antibody REACTIVE (Nonreactive); ~Hepatitis C Antibody Nonreactive (Nonreactive)
[2023-12-26 13:33] LABS: Antibody to SS-A Antigen <1.0 NEG AI (<1.0 NEG); Antibody to SS-B Antigen <1.0 NEG AI (<1.0 NEG); SM/Ribonucleoprotein Ab <1.0 NEG AI (<1.0 NEG); Smith Protein <1.0 NEG AI (<1.0 NEG)
[2023-12-26 14:43] LABS: Cyclic Citrullinated Peptide <16 UNITS
[2023-12-26 21:48] LABS: Prot Elec - Albumin 4.2 g/dL (3.8-4.8); Prot Elec - Alpha1 0.3 g/dL (0.2-0.3); Prot Elec - Alpha2 0.6 g/dL (0.5-0.9); Prot Elec - Beta 1 0.5 g/dL (0.4-0.6); Prot Elec - Beta 2 0.5 g/dL (0.2-0.5); Prot Elec - Gamma 1.1 g/dL (0.8-1.7); Prot Elec - Total Protein 7.2 g/dL (6.1-8.1)
[2023-12-27 11:34] LABS: IgA 331 mg/dL (47-310); IgG 1164 mg/dL (600-1640); IgM 71 mg/dL (50-300)
[2023-12-27 22:18] LABS: TS Negative Control Passed; TS Panel A 1; TS Panel B 0; TS Positive Control Passed; TSpotTB Negative (Negative)
[2023-12-29 14:49] LABS: HLA B27 Negative (Negative)
[2023-12-30 09:13] LABS: Anti Nuclear Antibody Screen POSITIVE (NEGATIVE)
== END 2023-12-25 11:45 | disposition home or self-care (01) ==
LOC: HO.10HDL 11:44
PROVIDERS: Visit Provider Nurse Practitioner Family
DX: Z11.9 Encounter for screening for infectious and parasitic diseases, unspecified (principal); M25.50 Pain in unspecified joint; R79.0 Abnormal level of blood mineral; M72.2 Plantar fascial fibromatosis; R06.83 Snoring; M54.50 Low back pain, unspecified; R76.8 Other specified abnormal immunological findings in serum; M79.641 Pain in right hand; M79.642 Pain in left hand; R20.2 Paresthesia of skin; G89.29 Other chronic pain
CPT/HCPCS: 36415; 82607; 82746; 82784; 84165; 85652; 86038; 86039; 86140; 86200; 86235; 86334; 86431; 86481; 86704; 86706; 86709; 86803; 86812; 87340; 99212

== ENCOUNTER → 2024-02-07 19:30 | Outpatient (REF) | payer MEDICARE, MEDICAID, SELFPAY | LOC: HO.SL 19:30 | PROVIDERS: PCP Student in an Organized Health Care Education/Training Program; Visit Provider Nurse Practitioner Family | DX: G47.19 Other hypersomnia (principal); G47.9 Sleep disorder, unspecified; R06.83 Snoring | CPT/HCPCS: 95810 ==

== ENCOUNTER → 2024-02-07 23:50 | Outpatient (BNV) | payer MEDICARE, MEDICAID, SELFPAY | PROVIDERS: PCP Student in an Organized Health Care Education/Training Program; Visit Provider Psychiatry & Neurology Neurology | DX: R06.83 Snoring (principal) | CPT/HCPCS: 95810 ==

== ENCOUNTER 2024-02-12 12:35 | Outpatient (AMB) | payer MEDICARE, MEDICAID, SELFPAY ==
--- NOTE | 2024-02-12 12:42 | A.OFFVIS_ITS ---
Vital Signs 02/12/24 12:47 Height 5 ft 4 in Weight 195 lb 12.328 oz BMI 33.6 BP 108/70 Blood Pressure Location Rt brachial Position Sitting Pulse 89 Pulse Oximetry (%) 100 Intake Visit Reasons: Was a follow up Intake Note: Patient presents today for +CARMELINA follow up. Allergies Penicillins Allergy (Intermediate, Verified 02/12/24 12:44) Hives oxcarbazepine Allergy (Unknown, Verified 02/12/24 12:44) Unknown propylene glycol Allergy (Unknown, Verified 02/12/24 12:44) Unknown cats, dust , pollen Allergy (Unknown, Uncoded 02/12/24 12:44) Unknown HPI Comments Details: Ms. Clover Sarkar returns for follow-up of her of multiple areas of pain and a positive CARMELINA (1:80). She continues with plantar fasciitis and knee pain. T jerry the patient has on slippers and her feet/toes are observed as purplish/bluish and changing to white. She says her hands do the same thing when they are cold. 12/2023: Ms. Clover Sarkar returns for follow-up of her of multiple areas of pain and a positive CARMELINA. She continues with plantar fsciitis and knee pain. She continues to follow with Neuro for headaches and Ortho for Plantar Fasciitis. She endorses diffused pain to hand, ankle knees and lower back. She denies uvetiits, rash, diarrhea, stool mucous or blood. She does not have CTD and inflammatory symptoms. She did not obtain labs as requested. She has modified her diet to be Gluten free and finds that many of her discomfort has been alleviated or reduced. She does not have the swelling/puffiness that she felt in the past to hands and feet and face. She also says that the rash to her face has cleared up significantly being Gluten free. She still has the over pain. She wants to continue on this path and see if she can obtain more benefit from being Gluten free. Prior Visit 08/06/2022: The patient presents for evaluation of multiple areas of pain and a positive CARMELINA. After her of her 1st child when she was 19 she noted the onset of some lower back pain. This typically is sharp and comes and goes. It is often made worse when she is more physically active. She has had 2 subsequent childbirths and after the last 3 years ago she devleoped some upper back pain. This seems to radiate around to the front of the chest. It is worse with taking a deep breath or with bending or stooping. She does not recall any injury to the area. She also gets more diffuse pains involving the hands, wrists, hips, knees and feet. She thinks the hands are intermittently painful, swollen and numb. She was put on 7.5 mg daily meloxicam about 6 months ago but it has not really improved any of her symptoms. An CARMELINA was done and was positive a 1:160 titer. She gets some redness over her cheeks at times. She was told in the past she had ADHD and bipolar disorder. A subsequent therapist told her that she only has ADHD and not bipolar. She is not on any medicine for these mental health issues currently. She does take occasional albuterol inhaler for wheezing. She she lives with her 3 children at home and they are said to have some degree of autism. [facility], [facility] Medical History (Updated 02/12/24 @ 13:14 by INDY Cramer) Bilateral sacroiliitis Plantar fasciitis, bilateral Screening examination for infectious disease Chronic pain of multiple joints Bilateral hand pain Obesity Asthma ADD (attention deficit disorder) Iron deficiency anemia Gestational diabetes Bipolar 1 disorder Surgical History History of section Family History Mother Hypercholesteremia Father Diabetes Hypothyroidism Arthritis CVA (cerebral vascular accident) Maternal Grandmother Myocardial infarct Maternal Grandfather Myocardial infarct Paternal Grandmother Prostate cancer Paternal Grandfather No problems noted. Social History Household Members: Children Alcohol intake: current Alcohol intake frequency: does not drink Patient Tobacco Use Status: Never used Tobacco Current occupational status: unemployed Physical Exam Vital Signs: Last Vital Signs Pulse 89 02/12/24 12:47 BP 108/70 02/12/24 12:47 Pulse Ox 100 02/12/24 12:47 BMI result Body Mass Index 33.6 Results Reviewed Results Reviewed: TB and Hep Panel WNL Assessment & Plan Assessment & Plan (1) CARMELINA positive: Code(s): R76.8 - Other specified abnormal immunological findings in serum Category: Medical (2) Lower back pain: Code(s): M54.50 - Low back pain, unspecified Category: Medical Qualifiers: Back pain laterality: bilateral Chronicity: chronic Sciatica presence: without sciatica Qualified Code(s): M54.50 - Low back pain, unspecified; G89.29 - Other chronic pain (3) Abnormal x-ray of lumbar spine: Comment: Right SI joint sclerosis Code(s): R93.7 - Abnormal findings on diagnostic imaging of other parts of musculoskeletal system Category: Medical (4) Chronic pain of multiple joints: Code(s): M25.50 - Pain in unspecified joint; G89.29 - Other chronic pain Category: Medical (5) Plantar fasciitis, bilateral: Code(s): M72.2 - Plantar fascial fibromatosis Category: Medical (6) Bilateral sacroiliitis: Code(s): M46.1 - Sacroiliitis, not elsewhere classified Category: Medical Plan She continues with SI joint pain, plantar fascitiis and lower back pain. I will trial her on RIVOQ 15 mg QD for 1 month and reassess. TB and Hep OK to start. If patient improves consider, Leflunomide or Enbrel F/u 6weeks Prior Assessment 09/24/2023: #Low Back Pain/Multiple Joint Pain:The patient presents for evaluation of multiple areas of pain to low back, ankle, knees, feet and hands. She has had low back pain starting at age 19. In last 4 years or so she has also had intermittent thoracic spine pains, seemingly of a pleuritic nature at times. Imaging of the chest has been normal. The LS spine films showed some right SI joint sclerosis but I can not review the films as they were done at [place]. The quality of her pains are that they do seem to bother her at night but also get worse with activity. This would make it a mixed picture of possible inflammatory disease, such as SpA, and degenerative processes. In that regard the cervical and lumbar spine regions did not have significant degenerative changes on the readings. Her sed rate was also normal last Jul 2022. A further work up with thoracic spine films and a recheck of her inflammatory markers was also WNL and non-contributory to SpA Dx. I will recheck some inflammatory markers and I will add some more specific antibodies to rule out RA given hand pain and check HLA B27 given hx of low back pain with SI sclerosis and plantar fasciitis for possible nrAxSpa,. #+CARMELINA:The CARMELINA titer was low at [place] and her widespread symptoms are more suggestive of fibromyalgia particularly in light of the normal ENAs, sed rate and CBC from last labs 07/2022. She does not have a presentation for SLE. The facial rash was treated as rosacea and her fatigue is likely related to the depression. Orders: Orders Complete Blood Count Auto Diff 02/12/24 M72.2 - Plantar fascial fibromatosis, M79.641 - Pain in right hand, M79.642 - Pain in left hand, M46.1 - Sacroiliitis, not elsewhere classified Comprehensive Met. Panel 02/12/24 M72.2 - Plantar fascial fibromatosis, M79.641 - Pain in right hand, M79.642 - Pain in left hand, M46.1 - Sacroiliitis, not elsewhere classified Lipid Panel 02/12/24 M72.2 - Plantar fascial fibromatosis, M79.641 - Pain in right hand, M79.642 - Pain in left hand, M46.1 - Sacroiliitis, not elsewhere classified Medications: New upadacitinib ER (Rinvoq) Do not Dispense - Sample Sample Lot# [id number] Exp 06/07/2025 15 mg PO DAILY 28 tabs 0RF M46.1 - Sacroiliitis, not elsewhere classified Coding Level of Care Code Est Pt Level 2 (19459) Complex EM visit Add On G2211 Diagnoses CARMELINA positive R76.8 Chronic bilateral low back pain without sciatica M54.50; G89.29 Back pain laterality: bilateral Chronicity: chronic Sciatica presence: without sciatica Abnormal x-ray of lumbar spine R93.7 Chronic pain of multiple joints M25.50; G89.29 Plantar fasciitis, bilateral M72.2 Bilateral sacroiliitis M46.1
[2024-02-12 12:47] VITALS: BP 108/70; PULSE 89; O2SAT 100; BMI 33.6
== END 2024-02-12 14:05 | disposition home or self-care (01) ==
PROVIDERS: PCP Student in an Organized Health Care Education/Training Program; Visit Provider Nurse Practitioner Family
DX: R76.8 Other specified abnormal immunological findings in serum (principal); M54.50 Low back pain, unspecified; G89.29 Other chronic pain; R93.7 Abnormal findings on diagnostic imaging of other parts of musculoskeletal system; M25.50 Pain in unspecified joint; M72.2 Plantar fascial fibromatosis; M46.1 Sacroiliitis, not elsewhere classified
CPT/HCPCS: 99212; G2211

== ENCOUNTER → 2024-02-12 12:35 | Outpatient (BNVA) | payer MEDICARE, MEDICAID, SELFPAY | PROVIDERS: PCP Student in an Organized Health Care Education/Training Program; Visit Provider Nurse Practitioner Family | DX: R76.8 Other specified abnormal immunological findings in serum (principal); M72.2 Plantar fascial fibromatosis; M54.50 Low back pain, unspecified; M46.1 Sacroiliitis, not elsewhere classified; M25.50 Pain in unspecified joint; G89.29 Other chronic pain; R93.7 Abnormal findings on diagnostic imaging of other parts of musculoskeletal system | CPT/HCPCS: 99212 ==

== ENCOUNTER 2024-06-19 16:46 | Emergency (ER) | payer MEDICARE, MEDICAID, SELFPAY ==
[2024-06-19 17:59] VITALS: BP 106/70; PULSE 121; RESP 18; TEMP 37.9; O2SAT 100; BMI 31.7
--- NOTE | 2024-06-19 18:00 | ED.GENADULT ---
HPI - General Adult General Chief complaint: Abdominal Pain Stated complaint: dehydration Related Data Home Medications ?Medication ?Instructions ?Recorded ?Confirmed albuterol sulfate 90 mcg/actuation 2 puff inhalation Q6H PRN 04/27/22 11/27/23 aerosol inhaler (ProAir HFA) multivitamin 1 tab PO DAILY 04/27/22 11/27/23 ascorbic acid (vitamin C) 500 mg 500 mg PO DAILY 08/06/22 11/27/23 capsule phentermine 15 mg capsule 15 mg PO QAM 11/27/23 11/27/23 topiramate 50 mg tablet 50 mg PO DAILY 11/27/23 11/27/23 Previous Rx's ?Medication ?Instructions ?Recorded sulindac 200 mg tablet 200 mg PO BID #60 tabs 08/06/22 baclofen 10 mg tablet 10 mg PO BEDTIME 30 days #30 tabs 08/24/22 magnesium oxide 400 mg (241.3 mg 400 mg PO BEDTIME 30 days #30 tabs 08/24/22 magnesium) tablet riboflavin (vitamin B2) 400 mg 400 mg PO DAILY 30 days #30 tabs 08/24/22 tablet upadacitinib 15 mg tablet,extended 15 mg PO DAILY #28 tabs 02/12/24 release 24 hr (Rinvoq) rizatriptan 10 mg tablet 5 - 10 mg (0.5 - 1 x 10 mg) PO Q2H 04/10/24 PRN migraine headache 30 days #12 tabs Allergies Allergy/AdvReac Type Severity Reaction Status Date / Time Penicillins Allergy Intermediate Hives Verified 06/19/24 18:03 oxcarbazepine Allergy Unknown Unknown Verified 06/19/24 18:03 propylene glycol Allergy Unknown Unknown Verified 06/19/24 18:03 cats, dust , pollen Allergy Unknown Unknown Uncoded 06/19/24 18:03 [facility] Past Medical History Medical History (Updated 02/12/24 @ 13:14 by INDY Cramer) Bilateral sacroiliitis Plantar fasciitis, bilateral Screening examination for infectious disease Chronic pain of multiple joints Bilateral hand pain Obesity Asthma ADD (attention deficit disorder) Iron deficiency anemia Gestational diabetes Bipolar 1 disorder Surgical History History of section Family History Family History Mother Hypercholesteremia Father Diabetes Hypothyroidism Arthritis CVA (cerebral vascular accident) Maternal Grandmother Myocardial infarct Maternal Grandfather Myocardial infarct Paternal Grandmother Prostate cancer Paternal Grandfather No problems noted. Social History Social History Household Members: Children Alcohol intake: current Alcohol intake frequency: does not drink Patient Tobacco Use Status: Never used Tobacco Current occupational status: unemployed Physical Exam ED Vital Signs: Vital Signs - 24 hr 06/19/24 17:59 Temperature 100.3 F Pulse Rate 121 H Respiratory Rate 18 Blood Pressure 106/70 Pulse Oximetry 100 Oxygen Delivery Method Room Air BMI result Body Mass Index 31.7 Course Course Course Narrative: This is a Rapid Medical Examination (RME) performed by Masood Phillips PA-C in triage. Full HPI, ROS, assessment and treatment plan per primary provider in the Main ED. 34 yo female here for eval of left sided abdominal pain and left flank pain x months. seen at [facility] out patient for CT abd - never received results. now reports fever beginning today. seen at this morning, advised to come here for eval. tmax 102.3F at . not given any OTC meds. currently on menstrual period. + well appearing. abd soft, ND/NT Plan: labs, UA, tylenol given Discharge Plan Discharge Prescriptions: No Action rizatriptan 10 mg tablet 5 - 10 mg PO Q2H PRN (Reason: migraine headache) 30 Days Qty: 12 6RF Rx Instructions: max 2 tabs per day or 4 tabs per week albuterol sulfate [ProAir HFA] 90 mcg/actuation HFA aerosol inhaler 2 puff inhalation Q6H PRN multivitamin Tablet 1 tab PO DAILY ascorbic acid (vitamin C) 500 mg capsule 500 mg PO DAILY sulindac 200 mg tablet 200 mg PO BID Qty: 60 1RF magnesium oxide 400 mg (241.3 mg magnesium) tablet 400 mg PO BEDTIME 30 Days Qty: 30 6RF Rx Instructions: may hold for loose stools riboflavin (vitamin B2) 400 mg tablet 400 mg PO DAILY 30 Days Qty: 30 6RF baclofen 10 mg tablet 10 mg PO BEDTIME 30 Days Qty: 30 3RF phentermine 15 mg capsule 15 mg PO QAM topiramate 50 mg tablet 50 mg PO DAILY Rinvoq 15 mg tablet extended release 24 hr 15 mg PO DAILY Qty: 28 0RF Rx Instructions: Do not Dispense - Sample Sample Lot# [id number] Exp 06/07/2025 Print Language: Bulgarian
[2024-06-19] MEDS: Acetaminophen 325 MG TABLET 650 MG PO (18:08)
[2024-06-19 18:30] LABS: MANUAL DIFF FLAG NO
[2024-06-19 18:32] LABS: Basophils Absolute Auto 0.1 X10*3/uL (0.0-0.2); Basophils Percent Auto 1.2 % (0-2); Eosinophils Absolute Auto 0.1 X10*3/uL (0.0-0.4); Eosinophils Percent Auto 1.2 % (0-4); Hematocrit 39.4 % (37.0-47.0); Hemoglobin 13.1 g/dl (12.0-16.0); Imm Gran Abs Auto 0.01 X10*3/uL (0.00-0.03); Imm Gran Pct Auto 0.2 % (0.0-0.4); Lymphocytes Absolute Auto 0.9 X10*3/uL (1.2-4.9); Lymphocytes Percent Auto 20.7 % (20-40); Mean Corpuscular HGB Conc 33.2 g/dl (31.0-35.0); Mean Corpuscular Hemoglobin 26.3 pg (27.0-33.0); Mean Corpuscular Volume 79.1 fL (80.0-98.0); Mean Platelet Volume 11.1 fL (9.4-12.3); Monocytes Absolute Auto 0.6 X10*3/uL (0.1-1.2); Monocytes Percent Auto 13.3 % (2-11); Neutrophils Absolute Auto 2.7 x10*3/uL (2.0-8.3); Neutrophils Percent Auto 63.4 % (45-73); Platelet Count 274 X10*3/uL (160-400); Red Blood Count 4.98 X10*6/uL (4.20-5.50); White Blood Count 4.3 X10*3/uL (4.8-10.8)
[2024-06-19 18:48] LABS: Alanine Aminotransferase 11 U/L (0-31); Albumin Level 4.2 g/dL (3.5-5.0); Alkaline Phosphatase 84 U/L (39-117); Anion Gap 9 (12-20); Aspartate Amino Transferase 14 U/L (5-31); Bilirubin Total 0.4 mg/dL (0.0-1.0); Blood Urea Nitrogen 13 mg/dL (9-16); Carbon Dioxide 25 mmol/L (22-29); Chloride 105 mmol/L (96-108); Creatinine Clr Calc Pharmacy 94.3; Estimated Glomerular Filt Rate > 60; Glucose Random 96 mg/dL (60-115); Lipase 20 U/L (8-78); Magnesium 2.4 mg/dL (1.6-2.6); Potassium 3.4 mmol/L (3.3-5.1); Sodium 136 mmol/L (135-145); Total Protein 7.8 g/dL (6.5-8.0)
[2024-06-19 18:49] LABS: Appearance Urine Clear; Color Urine Yellow; Glucose Urine UA Negative (Negative); Leukocyte Esterase Urine Negative (Negative); Nitrite Urine Negative (Negative); PH 5.5 (5.0-9.0); Specific Gravity - Urine 1.015 (1.005-1.025); UMIC TRIGGER UACC YES; Urine Blood Large (3+) (Negative); Urine Ketones Trace mg/dL (Negative); Urine Protein Negative (Neg-Trace)
[2024-06-19 18:55] LABS: UPreg QC Valid YES; Urine Pregnancy NEGATIVE (NEGATIVE)
[2024-06-19 19:04] LABS: Bacteria Urine None Seen (None Seen); Hyaline Casts Urine 0-2 /LPF (0-2); RBC Urine >20 /HPF (0-2); Squamous Epithelial Cell Urine 0-2 /HPF (0-2); WBC Urine 0-5 /HPF (0-5)
[2024-06-19 22:40] VITALS: BP 98/50; PULSE 89; RESP 18; TEMP 36.8; O2SAT 98
[2024-06-20 00:07] VITALS: BP 105/67; PULSE 90; RESP 16; O2SAT 100
[2024-06-20] MEDS: Ondansetron ODT 4 MG TAB.RAPDIS TRANSLINGU (00:31)
[2024-06-20 00:59] LABS: COVID-19 Test Negative (Negative); IDNOW Serial# 6674DD1D
--- NOTE | 2024-06-20 01:00 | ED.ABDPAIN ---
HPI - Abdominal Pain General Chief Complaint: Abdominal Pain Stated Complaint: dehydration Time Seen by Provider: 06/19/24 23:52 Source: patient Mode of arrival: ambulatory Limitations: no limitations History of Present Illness ED Provider: reynold KEITH narrative: Patient has been having chronic left-sided lower abdominal pain at least for [address] scan done on 05/26 at [facility] which was negative comes here now for 4 days of nausea vomiting and today patient has had fever of 100.3 no diarrhea no urinary symptoms no history of kidney stones has normal bowel movement Related Data Home Medications ?Medication ?Instructions ?Recorded ?Confirmed albuterol sulfate 90 mcg/actuation 2 puff inhalation Q6H PRN 04/27/22 11/27/23 aerosol inhaler (ProAir HFA) multivitamin 1 tab PO DAILY 04/27/22 11/27/23 ascorbic acid (vitamin C) 500 mg 500 mg PO DAILY 08/06/22 11/27/23 capsule phentermine 15 mg capsule 15 mg PO QAM 11/27/23 11/27/23 topiramate 50 mg tablet 50 mg PO DAILY 11/27/23 11/27/23 Previous Rx's ?Medication ?Instructions ?Recorded sulindac 200 mg tablet 200 mg PO BID #60 tabs 08/06/22 baclofen 10 mg tablet 10 mg PO BEDTIME 30 days #30 tabs 08/24/22 magnesium oxide 400 mg (241.3 mg 400 mg PO BEDTIME 30 days #30 tabs 08/24/22 magnesium) tablet riboflavin (vitamin B2) 400 mg 400 mg PO DAILY 30 days #30 tabs 08/24/22 tablet upadacitinib 15 mg tablet,extended 15 mg PO DAILY #28 tabs 02/12/24 release 24 hr (Rinvoq) rizatriptan 10 mg tablet 5 - 10 mg (0.5 - 1 x 10 mg) PO Q2H 04/10/24 PRN migraine headache 30 days #12 tabs ondansetron 4 mg disintegrating 4 mg PO Q6-8H PRN nausea and 06/20/24 tablet vomiting #10 tabs Allergies Allergy/AdvReac Type Severity Reaction Status Date / Time Penicillins Allergy Intermediate Hives Verified 06/19/24 18:03 oxcarbazepine Allergy Unknown Unknown Verified 06/19/24 18:03 propylene glycol Allergy Unknown Unknown Verified 06/19/24 18:03 cats, dust , pollen Allergy Unknown Unknown Uncoded 06/19/24 18:03 Review of Systems Review of Systems Yes all other systems are reviewed and are negative [facility] Past Medical History Medical History Bilateral sacroiliitis Plantar fasciitis, bilateral Screening examination for infectious disease Chronic pain of multiple joints Bilateral hand pain Obesity Asthma ADD (attention deficit disorder) Iron deficiency anemia Gestational diabetes Bipolar 1 disorder Surgical History History of section Family History Family History Mother Hypercholesteremia Father Diabetes Hypothyroidism Arthritis CVA (cerebral vascular accident) Maternal Grandmother Myocardial infarct Maternal Grandfather Myocardial infarct Paternal Grandmother Prostate cancer Paternal Grandfather No problems noted. Social History Social History Household Members: Children Alcohol intake: current Alcohol intake frequency: does not drink Patient Tobacco Use Status: Never used Tobacco Smoked in Last 30 Days: No Use of substances other than those prescribed or required for medical reasons: No Advance Directives: No Advance Directives Information Provided: No Do you have a plan to hurt others: No Plan Patient : No Current occupational status: unemployed Physical Exam ED Vital Signs: Vital Signs - 24 hr 06/19/24 17:59 06/19/24 22:40 06/20/24 00:07 Temperature 100.3 F 98.3 F Pulse Rate 121 H 89 90 Respiratory Rate 18 18 16 Blood Pressure 106/70 98/50 L 105/67 Pulse Oximetry 100 98 100 Oxygen Delivery Method Room Air Room Air Room Air BMI result Body Mass Index 31.7 Appearance: Alert. Oriented X3. No acute distress. Eyes: No pallor or icterus ENT: Pharynx normal. Oral Mucosa moist Neck: Normal inspection. Neck supple. CVS: Normal heart rate and rhythm. Pulses normal. Respiratory: No respiratory distress. Equal air entry bilateral, no wheezing/rales/rhonchi Abdomen: Soft and mild deep tenderness left lower quadrant Bowel sounds are present, no mass palpable, no CVA tenderness Skin: Skin warm and dry. Normal skin color. Normal skin turgor. Extremities: No lower extremity edema. No calf tenderness Neuro: Oriented X 3. N Medical Decision Making Medical Decision Making [facility] Narrative: Patient likely with viral syndrome causing the nausea /vomiting lab workup is negative patient recently had a CT scan of the abdomen which was negative will discharge patient home on no Zofran likely viral Differential Diagnosis Differential Diagnoses: The differential diagnosis associated with the presentation includes Lab Data [facility] Lab Attestation statement: I reviewed the patient's lab results. 06/19/24 18:25 06/19/24 18:25 Labs: Lab Results 06/19/24 06/20/24 Range/Units 18:25 00:26 WBC 4.3 L (4.8-10.8) X10*3/uL RBC 4.98 (4.20-5.50) X10*6/uL Hgb 13.1 (12.0-16.0) g/dl Hct 39.4 (37.0-47.0) % MCV 79.1 L (80.0-98.0) fL MCH 26.3 L (27.0-33.0) pg MCHC 33.2 (31.0-35.0) g/dl RDW 14.0 (11.0-16.0) % Plt Count 274 (160-400) X10*3/uL MPV 11.1 (9.4-12.3) fL Immature Gran % (Auto) 0.2 (0.0-0.4) % Neut % (Auto) 63.4 (45-73) % Lymph % (Auto) 20.7 (20-40) % [place] % (Auto) 13.3 H (2-11) % Eos % (Auto) 1.2 (0-4) % Baso % (Auto) 1.2 (0-2) % Lymph # (Auto) 0.9 L (1.2-4.9) X10*3/uL [place] # (Auto) 0.6 (0.1-1.2) X10*3/uL Eos # (Auto) 0.1 (0.0-0.4) X10*3/uL Baso # (Auto) 0.1 (0.0-0.2) X10*3/uL Abs Immat Gran (auto) 0.01 (0.00-0.03) X10*3/uL Absolute Neuts (auto) 2.7 (2.0-8.3) x10*3/uL Absolute Nucleated RBC 0.000 (0.0-0.012) X10*3/uL Nucleated RBC % (auto) 0.0 (0.0-0.2) /100WBC Sodium 136 (135-145) mmol/L Potassium 3.4 (3.3-5.1) mmol/L Chloride 105 (96-108) mmol/L Carbon Dioxide 25 (22-29) mmol/L Anion Gap 9 L (12-20) BUN 13 (9-16) mg/dL Creatinine 0.88 (0.5-1.4) mg/dL Estim Creat Clear Calc 94.3 Estimated GFR > 60 Random Glucose 96 (60-115) mg/dL Calcium 9.0 (8.4-10.2) mg/dL Magnesium 2.4 (1.6-2.6) mg/dL Total Bilirubin 0.4 (0.0-1.0) mg/dL AST 14 (5-31) U/L ALT 11 (0-31) U/L Alkaline Phosphatase 84 (39-117) U/L Total Protein 7.8 (6.5-8.0) g/dL Albumin 4.2 (3.5-5.0) g/dL Lipase 20 (8-78) U/L Urine Color Yellow Urine Appearance Clear Urine pH 5.5 (5.0-9.0) Ur Specific [place] 1.015 (1.005-1.025) Urine Protein Negative (Neg-Trace) mg/dL Urine Glucose (UA) Negative (Negative) mg/dL Urine Ketones Trace (Negative) mg/dL Urine Blood Large (3+) H (Negative) Urine Nitrite Negative (Negative) Ur Leukocyte Esterase Negative (Negative) Urine RBC >20 H (0-2) /HPF Urine WBC 0-5 (0-5) /HPF Ur Squamous Epith Cells 0-2 (0-2) /HPF Urine Bacteria None Seen (None Seen) Hyaline Casts 0-2 (0-2) /LPF Urine Test NEGATIVE (NEGATIVE) COVID-19 (JOSH) Negative (Negative) COVID-19 Clin Com See Note Medications Administered Discontinued Medications Generic Name Dose Route Start Last Admin Trade Name Freq PRN Reason Stop Dose Admin Acetaminophen 650 mg 06/19/24 18:04 10/04/24 18:08 Acetaminophen 325 Mg Tablet PO 06/19/24 18:05 650 mg ONCE ONE Administration Ondansetron HCl 4 mg 06/20/24 00:13 06/20/24 00:31 Ondansetron Odt 4 Mg Tab.Risa YOOU 06/20/24 00:14 4 mg ONCE ONE Administration Discharge Plan Discharge Clinical Impression: Vomiting, Abdominal pain, chronic, left lower quadrant Patient Disposition: Home, Self-Care Instructions: Acute Nausea and Vomiting (ED), Chronic Abdominal Pain (ED) Additional Instructions: Drink plenty of fluids Medicine for nausea as prescribed Follow with your PCP for further evaluation Prescriptions: New ondansetron 4 mg tablet,disintegrating 4 mg PO Q6-8H PRN (Reason: nausea and vomiting) Qty: 10 0RF No Action rizatriptan 10 mg tablet 5 - 10 mg PO Q2H PRN (Reason: migraine headache) 30 Days Qty: 12 6RF Rx Instructions: max 2 tabs per day or 4 tabs per week albuterol sulfate [ProAir HFA] 90 mcg/actuation HFA aerosol inhaler 2 puff inhalation Q6H PRN multivitamin Tablet 1 tab PO DAILY ascorbic acid (vitamin C) 500 mg capsule 500 mg PO DAILY sulindac 200 mg tablet 200 mg PO BID Qty: 60 1RF magnesium oxide 400 mg (241.3 mg magnesium) tablet 400 mg PO BEDTIME 30 Days Qty: 30 6RF Rx Instructions: may hold for loose stools riboflavin (vitamin B2) 400 mg tablet 400 mg PO DAILY 30 Days Qty: 30 6RF baclofen 10 mg tablet 10 mg PO BEDTIME 30 Days Qty: 30 3RF phentermine 15 mg capsule 15 mg PO QAM topiramate 50 mg tablet 50 mg PO DAILY Rinvoq 15 mg tablet extended release 24 hr 15 mg PO DAILY Qty: 28 0RF Rx Instructions: Do not Dispense - Sample Sample Lot# [id number] 06/07/2025 Print Language: Vietnamese
[2024-06-20 01:51] VITALS: BP 101/59; PULSE 96; RESP 18; TEMP 36.2; O2SAT 99
== END 2024-06-20 01:57 | disposition home or self-care (01) ==
PROVIDERS: Physician Assistant Medical; Emergency Provider Internal Medicine; PCP Student in an Organized Health Care Education/Training Program
DX: R11.2 Nausea with vomiting, unspecified (principal); G89.29 Other chronic pain; R10.32 Left lower quadrant pain; R50.9 Fever, unspecified; J45.909 Unspecified asthma, uncomplicated; Z11.52 Encounter for screening for COVID-19
CPT/HCPCS: 36415; 80053; 81001; 81025; 83690; 83735; 85025; 87635; 99283; 99284